=== PATIENT | female | born 1940 | race Caucasian/White ===

== ENCOUNTER 2018-05-08 13:37 | Outpatient (CLI) | payer OTHER ==
--- NOTE | 2018-05-13 14:58 | MMO ---
BILATERAL SCREENING MAMMOGRAM: Date: 05/08/18 COMPARISON: 04/25/17 study. HISTORY: Annual screening exam. This patient's mammogram was interpreted with the assistance of computer-aided detection. FINDINGS: The breasts are heterogeneously dense. There are calcifications in both breasts that appear stable. T here is no dominant mass, suspicious calcification, or other sign of malignancy. IMPRESSION: BIRADS 2: Benign Finding(s) POS: BENJI
== END 2018-05-08 13:38 | disposition home or self-care (01) ==
LOC: SCSMAMMO 13:37
PROVIDERS: ATTEND Family Medicine
DX: Z12.31 Encounter for screening mammogram for malignant neoplasm of breast (principal)
CPT/HCPCS: 77067

== ENCOUNTER 2018-07-28 21:02 | Emergency (ER) | payer MEDICARE, OTHER ==
--- NOTE | 2018-07-28 22:57 | RAD ---
THREE VIEWS RIGHT FOOT: Comparison: None. History: Right foot pain and swelling of the right ankle. FINDINGS: Three views of the right foot shows no evidence of acute fracture or dislocation. No degenerative eliot nges are seen. No soft tissue swelling of the foot is seen. IMPRESSION: Unremarkable exam. POS: BENJI
== END 2018-07-28 22:03 | disposition home or self-care (01) ==
LOC: SCSER 21:02
DX: M79.89 Other specified soft tissue disorders (principal); M25.571 Pain in right ankle and joints of right foot; E11.9 Type 2 diabetes mellitus without complications; I10 Essential (primary) hypertension; Z79.899 Other long term (current) drug therapy

== ENCOUNTER 2018-11-28 22:23 | Emergency (ER) | payer MEDICARE ==
[2018-11-28] MEDS ORDERED: Metoclopramide HCl 10 MG/2 ML VIAL ONE (22:57)
--- NOTE | 2018-11-29 00:07 | CT ---
CT OF HEAD NONCONTRAST: 11/28/18 INDICATION: Fall with injury. 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 Focal component at the inner table of the right frontal bone could also relate to a superimposed heavily calcified meningioma versus osteoma. T here is parenchymal volume loss. No intracranial hemorrhage, mass effect or midline shift. Right tom etal scalp hematoma is present near the vertex. IMPRESSION: There is no acute intracranial hemorrhage or mass effect. POS: CADE
--- NOTE | 2018-11-29 00:08 | CT ---
CT CERVICAL SPINE NONCONTRAST: 11/28/18 INDICATION: Injury, pain related to fall. FINDINGS: There is multilevel cervical spine degenerative change. No evidence of compression fracture or sublux ation. IMPRESSION: No acute osseous abnormality of the cervical spine. POS: CADE
== END 2018-11-29 00:36 | disposition home or self-care (01) ==
LOC: SCSER 22:23
DX: S00.03XA Contusion of scalp, initial encounter (principal); S50.811A Abrasion of right forearm, initial encounter; E03.9 Hypothyroidism, unspecified; E11.9 Type 2 diabetes mellitus without complications; Z86.73 Personal history of transient ischemic attack (TIA), and cerebral infarction without residual deficits; Z79.899 Other long term (current) drug therapy; Z79.84 Long term (current) use of oral hypoglycemic drugs; W01.0XXA Fall on same level from slipping, tripping and stumbling without subsequent striking against object, initial encounter
CPT/HCPCS: 70450; 72125; J2765

== ENCOUNTER 2022-11-30 16:57 | Outpatient (CLI) | payer MEDICARE | END 2022-11-30 16:58 | disposition home or self-care (01) | LOC: SCSRAD 16:57 | PROVIDERS: ATTEND Specialist | DX: M79.601 Pain in right arm (principal); S52.571D Other intraarticular fracture of lower end of right radius, subsequent encounter for closed fracture with routine healing ==